=== PATIENT | male | born 1955 | race Caucasian/White ===

== ENCOUNTER → 2023-12-18 07:56 | Outpatient (REF) | payer BC, SELFPAY | LOC: RAD 07:56 | PROVIDERS: ATTENDING PHYSICIAN Urology; FAMILY PHYSICIAN Family Medicine | DX: N20.0 Calculus of kidney (principal) | CPT/HCPCS: 76775 ==

== ENCOUNTER 2023-12-22 14:55 | Outpatient (RCR) | payer SELFPAY | END 2023-12-22 23:59 | disposition home or self-care (01) | LOC: ROT 14:55 | PROVIDERS: ATTENDING PHYSICIAN Family Medicine | DX: Z02.4 Encounter for examination for driving license (principal) ==

== ENCOUNTER → 2024-01-08 15:09 | Outpatient (REF) | payer BC, SELFPAY | LOC: RAD 15:09 | PROVIDERS: ATTENDING PHYSICIAN Family Medicine | DX: Z13.6 Encounter for screening for cardiovascular disorders (principal); Z87.891 Personal history of nicotine dependence | CPT/HCPCS: 76770 ==

== ENCOUNTER 2024-03-04 11:02 | Outpatient (RCR) | payer BC, SELFPAY | END 2024-03-11 11:03 | disposition home or self-care (01) | LOC: RST 11:02 | PROVIDERS: ATTENDING PHYSICIAN Family Medicine | DX: R41.841 Cognitive communication deficit (principal); R41.3 Other amnesia; F01.B0 Vascular dementia, moderate, without behavioral disturbance, psychotic disturbance, mood disturbance, and anxiety | CPT/HCPCS: 96125 ==

== ENCOUNTER 2024-05-10 12:01 | Outpatient (RCR) | payer BC, SELFPAY | END 2024-05-10 23:59 | disposition home or self-care (01) | LOC: RST 12:01 | PROVIDERS: ATTENDING PHYSICIAN Family Medicine | DX: R41.3 Other amnesia (principal); R41.841 Cognitive communication deficit; F01.B0 Vascular dementia, moderate, without behavioral disturbance, psychotic disturbance, mood disturbance, and anxiety | CPT/HCPCS: 97129; 97130 ==

== ENCOUNTER 2024-05-31 13:36 | Outpatient (RCR) | payer BC, SELFPAY | END 2024-05-31 23:59 | disposition home or self-care (01) | LOC: RST 13:36 | PROVIDERS: ATTENDING PHYSICIAN Family Medicine | DX: R41.3 Other amnesia (principal); F01.B0 Vascular dementia, moderate, without behavioral disturbance, psychotic disturbance, mood disturbance, and anxiety; R41.841 Cognitive communication deficit | CPT/HCPCS: 97129; 97130 ==

== ENCOUNTER 2024-06-28 13:37 | Outpatient (RCR) | payer BC, SELFPAY | END 2024-06-28 23:59 | disposition home or self-care (01) | LOC: RST 13:37 | PROVIDERS: ATTENDING PHYSICIAN Family Medicine | DX: R41.3 Other amnesia (principal); F01.B0 Vascular dementia, moderate, without behavioral disturbance, psychotic disturbance, mood disturbance, and anxiety; R41.841 Cognitive communication deficit | CPT/HCPCS: 97129; 97130 ==

== ENCOUNTER 2024-07-12 15:23 | Outpatient (RCR) | payer BC, SELFPAY | END 2024-07-12 23:59 | disposition home or self-care (01) | LOC: RST 15:23 | PROVIDERS: ATTENDING PHYSICIAN Family Medicine | DX: F01.B0 Vascular dementia, moderate, without behavioral disturbance, psychotic disturbance, mood disturbance, and anxiety (principal); R41.3 Other amnesia; R41.841 Cognitive communication deficit | CPT/HCPCS: 97129; 97130 ==

== ENCOUNTER 2024-08-23 11:50 | Outpatient (RCR) | payer BC, SELFPAY | END 2024-08-23 23:59 | disposition home or self-care (01) | LOC: RST 11:50 | PROVIDERS: ATTENDING PHYSICIAN Family Medicine | DX: F01.B0 Vascular dementia, moderate, without behavioral disturbance, psychotic disturbance, mood disturbance, and anxiety (principal); R41.3 Other amnesia; R41.841 Cognitive communication deficit | CPT/HCPCS: 97129; 97130 ==

== ENCOUNTER 2024-09-13 13:39 | Outpatient (RCR) | payer BC, SELFPAY | END 2024-09-13 23:59 | disposition home or self-care (01) | LOC: RST 13:39 | PROVIDERS: ATTENDING PHYSICIAN Family Medicine | DX: F01.B0 Vascular dementia, moderate, without behavioral disturbance, psychotic disturbance, mood disturbance, and anxiety (principal); R41.3 Other amnesia; R41.841 Cognitive communication deficit | CPT/HCPCS: 97129; 97130 ==

== ENCOUNTER 2025-08-23 06:20 | Day surgery (SDC) | payer OTHER, SELFPAY | END 2025-08-23 11:21 | disposition home or self-care (01) | LOC: GI 06:20 | PROVIDERS: ATTENDING PHYSICIAN Internal Medicine Gastroenterology; FAMILY PHYSICIAN Family Medicine | DX: D12.0 Benign neoplasm of cecum (principal); D12.3 Benign neoplasm of transverse colon; D12.4 Benign neoplasm of descending colon; D12.5 Benign neoplasm of sigmoid colon; D12.7 Benign neoplasm of rectosigmoid junction; R19.5 Other fecal abnormalities; K64.8 Other hemorrhoids | CPT/HCPCS: 45385; 88305 ==